=== PATIENT | female | born 1980 | race Hispanic/Latino ===

== ENCOUNTER 2020-01-03 22:03 | Emergency (ER) | payer BC ==
[~2020-01-03] VITALS: Ht 167.6 cm; Wt 99.8 kg
[2020-01-03] MEDS ORDERED: SODIUM CHLORIDE 0.9% 1000ML 1,000 ML IV ONE (22:15)
[2020-01-03] MEDS ORDERED: KETOROLAC TROMETHAMINE 30 MG/ML VIAL IV STA (22:15)
[2020-01-03] MEDS ORDERED: CEFTRIAXONE SOD 1 GM/NS 50 ML 50 ML IV ONE (22:15)
[2020-01-03] MEDS ORDERED: ACETAMINOPHEN 325 MG TAB PO ONE (22:15)
[2020-01-03] MEDS ORDERED: ONDANSETRON HCL INJ 2MG/ML 2ML 2 MG/ML VIAL IV STA (22:15)
[2020-01-03 22:28] LABS: BASOPHILS % 0.3 % (0.0-1.0); EOSINOPHILS % 0.1 % (0.0-6.0); HEMATOCRIT 40.9 % (34.2-44.1); HEMOGLOBIN 13.4 g/dL (12.0-16.0); LYMPHOCYTES # (AUTO) 1.7 (1.0-3.2); MEAN CORPUSCULAR HGB CONC 32.8 g/dL (31-35); MEAN CORPUSCULAR VOLUME 82.5 fL (81-99); MONOCYTES # (AUTO) 0.7 (0.2-0.8); MONOCYTES % 5.1 % (4.4-11.3); NEUTROPHILS # (AUTO) 11.4 (2.1-6.9); NEUTROPHILS % 81.9 % (38.7-80.0); PLATELET COUNT 246 x10e3/uL (140-360); RED BLOOD COUNT 4.96 x10e6/uL (3.6-5.1); RED CELL DISTRIBUTION WIDTH 13.2 % (11.7-14.4)
[2020-01-03 22:37] LABS: CLARITY,URINE CLOUDY (CLEAR); COLOR,URINE YELLOW (YELLOW); KETONES,URINE 3+ (NEGATIVE); LEUKOCYTE ESTERASE ,URINE TRACE (NEGATIVE); NITRITE,URINE NEGATIVE (NEGATIVE); PROTEIN,URINE DIPSTICK 2+ (NEGATIVE); URINE UROBILINOGEN 0.2 mg/dL (0.2 - 1)
[2020-01-03 22:38] LABS: BILIRUBIN,URINE NEGATIVE (NEGATIVE)
[2020-01-03 22:42] LABS: BACTERIA,URINE FEW /HPF; EPITHELIAL CELLS,URINE FEW /LPF; RBC,URINE >50 /HPF (0-5)
[2020-01-03 22:47] LABS: ALANINE AMINOTRANSFERASE 52 IU/L (0-55); ALBUMIN 4.5 g/dL (3.5-5.0); ALBUMIN/GLOBULIN RATIO 1.3 (0.8-2.0); ALKALINE PHOSPHATASE 91 IU/L (40-150); ANION GAP 15.8 mmol/L (8-16); BLOOD UREA NITROGEN 7 mg/dL (7-26); BUN/CREATININE RATIO 10 (6-25); CALCIUM 9.2 mg/dL (8.4-10.2); CARBON DIOXIDE 24 mmol/L (22-29); CHLORIDE 101 mmol/L (98-107); CREATININE, SERUM 0.71 mg/dL (0.57-1.11); EST GLOMERULAR FILTRATION RATE > 60 ML/MIN (60-); GLUCOSE 289 mg/dL (74-118); POTASSIUM 3.8 mmol/L (3.5-5.1); SODIUM 137 mmol/L (136-145)
--- NOTE | 2020-01-03 23:32 | Emergency Department Note ---
History of Present Illnes History of Present Illness Chief Complaint: Genitourinary History of Present Illness This is a 39 year old female states she went to an urgent care today. and was told she had a bladder infection. Given an IM rocephin shot and given oral antibiotics. C/o right flank pain and nausea and vomiting with weakness .pt febrile on arrival Historian: Patient Arrival Mode: Car Onset (how long ago): day(s) (1) Location: right flank Quality: pain, nausea, dysuria Radiation: Reports back Severity: moderate Onset quality: sudden Duration (how long): day(s) (1) Timing of current episode: constant Progression: unchanged Chronicity: new Context: Reports recent illness (uti); Denies recent surgery, Denies trauma/injury Relieving factors: none Exacerbating factors: none Associated symptoms: Reports nausea/vomiting Past Medical/Family History Physician Review I have reviewed the patient's past medical and family history. Any updates have been documented here. Past Medical History Recent Fever: No Clinical Suspicion of Infectio: No New/Unexplained Change in Ment: No Other Medical History: gestational dm Past Surgical History: Cholecysctectomy, Tubal Ligation, Social History Smoking Cessation: Never Smoker Alcohol Use: None Any Illegal Drug Use: No Family History Family history of heart diseas: No Review of Systems Review of Systems Constitutional: Reports chills EENTM: Reports no symptoms Cardiovascular: Reports no symptoms Respiratory: Reports no symptoms Gastrointestinal: Reports no symptoms Genitourinary: Reports as per HPI Musculoskeletal: Reports no symptoms Integumentary: Reports no symptoms Neurological: Reports no symptoms Psychological: Reports no symptoms Endocrine: Reports no symptoms Hematological/Lymphatic: Reports no symptoms Physical Exam Related Data Allergies: Coded Allergies: No Known Allergies (Unverified , 01/03/20) Triage Vital Signs Vital Signs Date Time Temp Pulse Resp B/P (MAP) Pulse Ox O2 Delivery O2 Flow Rate FiO2 01/03/20 22:13 100.4 110 21 150/90 96 Room Air Vital signs reviewed: Yes Physical Exam CONSTITUTIONAL Constitutional: Present well-developed, Present well-nourished, Present distressed (mild) HENT HENT: Present normocephalic, Present atraumatic, Present oropharynx carlos manuel r/moist, Present nose normal HENT L/R: Present left ext ear normal, Present right ext ear normal EYES Eyes: Reports PERRL, Reports conjunctivae normal NECK Neck: Present ROM normal PULMONARY Pulmonary: Present effort normal, Present breath sounds normal CARDIOVASCULAR Cardiovascular: Present regular rhythm, Present heart sounds normal, Present capillary refill normal, Present tachycardia GASTROINTESTINAL Abdominal: Present soft, Present bowel sounds normal, Present tender (suprapubic), Present right CVA tenderness (moderate) GENITOURINARY Genitourinary: Present exam deferred SKIN Skin: Present warm, Present dry MUSCULOSKELETAL Musculoskeletal: Present ROM normal NEUROLOGICAL Neurological: Present alert, Present oriented x 3, Present no gross motor or sensory deficits PSYCHOLOGICAL Psychological: Present mood/affect normal, Present judgement normal Results Laboratory Result Diagram: 01/03/200 01/03/20 2220 Laboratory Laboratory Tests Test 01/03/20 22:20 White Blood Count 13.95 x10e3/uL (4.8-10.8) Red Blood Count 4.96 x10e6/uL (3.6-5.1) Hemoglobin 13.4 g/dL (12.0-16.0) Hematocrit 40.9 % (34.2-44.1) Mean Corpuscular Volume 82.5 fL (81-99) Mean Corpuscular Hemoglobin 27.0 pg (28-32) Mean Corpuscular Hemoglobin Concent 32.8 g/dL (31-35) Red Cell Distribution Width 13.2 % (11.7-14.4) Platelet Count 246 x10e3/uL (140-360) Neutrophils (%) (Auto) 81.9 % (38.7-80.0) Lymphocytes (%) (Auto) 12.0 % (18.0-39.1) Monocytes (%) (Auto) 5.1 % (4.4-11.3) Eosinophils (%) (Auto) 0.1 % (0.0-6.0) Basophils (%) (Auto) 0.3 % (0.0-1.0) Neutrophils # (Auto) 11.4 (2.1-6.9) Lymphocytes # (Auto) 1.7 (1.0-3.2) Monocytes # (Auto) 0.7 (0.2-0.8) Eosinophils # (Auto) 0.0 (0.0-0.4) Basophils # (Auto) 0.0 (0.0-0.1) Absolute Immature Granulocyte (auto 0.08 x10e3/uL (0-0.1) Urine Color Yellow (YELLOW) Urine Clarity Cloudy (CLEAR) Urine pH 6 (5 - 7) Urine Specific Ripley 1.020 (1.010-1.025) Urine Protein 2+ (NEGATIVE) Urine Glucose (UA) 2+ (NEGATIVE) Urine Ketones 3+ (NEGATIVE) Urine Blood Large (NEGATIVE) Urine Nitrite Negative (NEGATIVE) Urine Bilirubin Negative (NEGATIVE) Urine Urobilinogen 0.2 mg/dL (0.2 - 1) Urine Leukocyte Esterase Trace (NEGATIVE) Urine RBC >50 /HPF (0-5) Urine WBC 11-20 /HPF (0-5) Urine Epithelial Cells Few /LPF (NONE) Urine Bacteria Few /HPF (NONE) Sodium Level 137 mmol/L (136-145) Potassium Level 3.8 mmol/L (3.5-5.1) Chloride Level 101 mmol/L (98-107) Carbon Dioxide Level 24 mmol/L (22-29) Anion Gap 15.8 mmol/L (8-16) Blood Urea Nitrogen 7 mg/dL (7-26) Creatinine 0.71 mg/dL (0.57-1.11) Estimat Glomerular Filtration Rate > 60 ML/MIN (60-) BUN/Creatinine Ratio 10 (6-25) Glucose Level 289 mg/dL (74-118) Lactic Acid Level 1.5 mmol/L (0.5-2.0) Calcium Level 9.2 mg/dL (8.4-10.2) Total Bilirubin 0.8 mg/dL (0.2-1.2) Aspartate Amino Transf (AST/SGOT) 25 IU/L (5-34) Alanine Aminotransferase (ALT/SGPT) 52 IU/L (0-55) Alkaline Phosphatase 91 IU/L (40-150) Total Protein 7.9 g/dL (6.5-8.1) Albumin 4.5 g/dL (3.5-5.0) Globulin 3.4 g/dL (2.3-3.5) Albumin/Globulin Ratio 1.3 (0.8-2.0) Lab results reviewed: Yes Imaging Imaging results reviewed: Yes Impressions Procedure: [id number] CT/CT ABDOMEN/PELVIS WO Exam Date: Exam Time: REPORT STATUS: Signed EXAM: CT Abdomen and Pelvis WITHOUT contrast INDICATION: ^RIGHT FLANK PAIN, EVAL FOR KIDNEY STONE, PYELONEPHRITIS ^Y COMPARISON: None. TECHNIQUE: Abdomen and pelvis were scanned utilizing a multidetector helical scanner from the lung base to the pubic symphysis without administration of IV contrast. Absence of intravenous contrast decreases sensitivity for detection of focal lesions and vascular pathology. Coronal and sagittal reformations were obtained. Routine protocol was performed. IV CONTRAST: None ORAL CONTRAST: None COMPLICATIONS: None RADIATION DOSE: Total DLP: 806.96 mGy*cm Estimated effective dose: (DLP x 0.015 x size factor) mSv CTDIvol has been reviewed. It is below the limits set by the Radiation Protocol Committee (RPC). Dose modulation, iterative reconstruction, and/or weight based adjustment of the mA/kV was utilized to reduce the radiation dose to as low as reasonably achievable. FINDINGS: Noncontrast technique limits evaluation of the solid organs. LINES and TUBES: None. LOWER THORAX: Unremarkable HEPATOBILIARY: No significant abnormality. GALLBLADDER: There are cholecystectomy clips. SPLEEN: No splenomegaly. PANCREAS: No focal masses or ductal dilatation. ADRENALS: No adrenal nodules KIDNEYS/URETERS: No hydronephrosis. No urinary tract calculi. Mild right periureteral fat stranding involves entire length of the ureter. Nonspecific symmetric minimal /trace strandy fluid about both kidneys. GI TRACT: No abnormal distention, wall thickening, or evidence of bowel obstruction. Appendix is normal. PELVIC ORGANS/BLADDER: Unremarkable. LYMPH NODES: No lymphadenopathy. VESSELS: Unremarkable. PERITONEUM / RETROPERITONEUM: No free air or fluid. BONES: Unremarkable. SOFT TISSUES: Unremarkable. IMPRESSION: 1. Mild right periureteral fat stranding could represent an ascending urinary tract infection versus recently passed stone. 2. No urinary tract calculi. No hydronephrosis. Signed by: Christian Puckett MD on 01/03/2020 11:31 PM Dictated By: CHRISTIAN PUCKETT MD 30 Transcribed By: BETO on 01/03/202330 COPY TO: ADITI WORTHINGTON MD~ Assessment & Plan Medical Decision Making MDM pt with right flank pain, fever, n/v diagnosed with uti at an urgent care today and received 1 gram rocephin im at the urgent care cbc.cmp, lactic acid, blood culture, ua, urine culture, ct abd/pelvis ordered to eval for sepsis, uti, hematuria, kidney stone, pyelonephritis, electrolyte abnormality rocephin 1 gram iv ordered ns 1 liter iv bolus ordered toradol 30 mg iv ordered zofran 4 mg iv ordered Reassessment Reassessment time: 00:02 Reassessment pt states she feels much better, states she is ready to go home. Assessment & Plan Final Impression: (1) UTI (urinary tract infection) Depart Disposition: HOME, SELF-CARE Last Vital Signs Date Time Temp Pulse Resp B/P (MAP) Pulse Ox O2 Delivery O2 Flow Rate FiO2 01/03/20 22:13 100.4 110 21 150/90 96 Room Air Medications in the ED Sodium Chloride 1,000 ml @ 999 mls/hr Q1H1M ONCE IV ; Start 01/03/20 at 22:15; Stop 01/03/20 at 23:15; Status DC Ketorolac Tromethamine 30 mg ONCE STAT IV ; Start 01/03/20 at 22:15; Stop 01/03/20 at 22:26; Status DC Ceftriaxone Sodium 50 ml @ 100 mls/hr ONCE ONCE IV ; Start 01/03/20 at 22:15; Stop 01/03/20 at 22:44; Status DC Ondansetron HCl 4 mg NOW STAT IV ; Start 01/03/20 at 22:15; Stop 01/03/20 at 22:26; Status DC Acetaminophen 650 mg ONCE ONCE PO ; Start 01/03/20 at 22:15; Stop 01/03/20 at 22:26; Status DC ADITI WORTHINGTON MD Jan 03, 2020 23:32
[2020-01-04 00:10] VITALS: BP 135/69
--- OUTSIDE RECORDS SUMMARY | 2020-01-05 10:14 | XMS REPORT | Continuity of Care Document ---
Author Author [facility] Organization [facility] Address [address] [place] [address] Phone Unavailable Care Team Providers Care Apartment Community Assistant Manager Name Role Phone Unavailable Unavailable Problems This patient has no known problems. Allergies, Adverse Reactions, Alerts This patient has no known allergies or adverse reactions. Medications This patient has no known medications. Procedures This patient has no known procedures. Encounters Start Date/Time End Date/Time Encounter Type Admission Type [facility] Care Department Encounter ID Source 2018-09-15 13:19:00 2018-09-15 13:19:00 Emergency E [id number] Results This patient has no known results.
== END 2020-01-04 00:30 | disposition home or self-care (01) ==
LOC: ER 22:20
DX: N39.0 Urinary tract infection, site not specified (principal); R73.9 Hyperglycemia, unspecified; R50.9 Fever, unspecified; M54.5 Low back pain; R11.2 Nausea with vomiting, unspecified; R53.1 Weakness
CPT/HCPCS: 36415; 74176; 80053; 81001; 83605; 85025; 87040; 87086; 87186; 96374; 96375; 99284; J0696; J1885; J2405; J7030

== ENCOUNTER 2020-04-21 20:21 | Emergency (ER) | payer BC ==
[~2020-04-21] VITALS: Ht 167.6 cm; Wt 99.8 kg
[2020-04-21 21:10] LABS: CLARITY,URINE HAZY (CLEAR); COLOR,URINE YELLOW (YELLOW); KETONES,URINE 2+ (NEGATIVE); LEUKOCYTE ESTERASE ,URINE NEGATIVE (NEGATIVE); NITRITE,URINE NEGATIVE (NEGATIVE); PROTEIN,URINE DIPSTICK NEGATIVE (NEGATIVE)
[2020-04-21 21:11] LABS: BACTERIA,URINE FEW /HPF; EPITHELIAL CELLS,URINE FEW /LPF; RBC,URINE 0-5 /HPF (0-5); URINE UROBILINOGEN 0.2 mg/dL (0.2 - 1); WBC,URINE (MAN) 0-5 /HPF (0-5)
[2020-04-21 21:14] LABS: PREGNANCY TEST, URINE NEGATIVE (NEGATIVE)
== END 2020-04-21 21:30 | disposition home or self-care (01) ==
LOC: ER 20:36
DX: R73.9 Hyperglycemia, unspecified (principal); N39.0 Urinary tract infection, site not specified
CPT/HCPCS: 36415; 36600; 81001; 81025; 82805; 82948; 99283

== ENCOUNTER 2024-07-08 21:17 | Emergency (ER) | payer SELFPAY ==
[~2024-07-08] VITALS: Ht 167.6 cm; Wt 100.7 kg
[~2024-07-08 21:17] MED LIST: DOXYCYCLINE HY100 MG PO; NAPROXEN250 MG PO
[2024-07-08 21:20] VITALS: PULSE 89; RESP 16; TEMP 98.6; O2SAT 100
[2024-07-08] MEDS ORDERED: TETANUS/DIPHTHERIA TOX ADULT 0.5 ML SYR ONE (21:31)
[2024-07-08] MEDS: TETANUS/DIPHTHERIA TOX ADULT 0.5 ML SYR IM ONE (21:39)
== END 2024-07-08 21:41 | disposition home or self-care (01) ==
LOC: ER 21:33
DX: S61.210A Laceration without foreign body of right index finger without damage to nail, initial encounter (principal); W26.8XXA Contact with other sharp object(s), not elsewhere classified, initial encounter; Y92.89 Other specified places as the place of occurrence of the external cause
CPT/HCPCS: 90471; 90714; 99283

== ENCOUNTER 2024-09-29 19:28 | Emergency (ER) | payer BC ==
[~2024-09-29] VITALS: Ht 167.6 cm; Wt 100.7 kg
[2024-09-29 20:03] LABS: BASOPHILS % 0.4 % (0.0-1.0); EOSINOPHILS # (AUTO) 0.1 (0.0-0.4); EOSINOPHILS % 1.1 % (0.0-6.0); HEMOGLOBIN 12.2 g/dL (12.0-16.0); LYMPHOCYTES # (AUTO) 2.2 (1.0-3.2); LYMPHOCYTES % 22.5 % (18.0-39.1); MEAN CORPUSCULAR VOLUME 81.9 fL (81-99); MONOCYTES # (AUTO) 0.5 (0.2-0.8); MONOCYTES % 4.8 % (4.4-11.3); NEUTROPHILS # (AUTO) 6.8 (2.1-6.9); NEUTROPHILS % 70.9 % (38.7-80.0); PLATELET COUNT 284 x10e3/uL (140-360); RED BLOOD COUNT 4.52 x10e6/uL (3.6-5.1); RED CELL DISTRIBUTION WIDTH 13.7 % (11.7-14.4); WHITE BLOOD COUNT 9.61 x10e3/uL (4.8-10.8)
[2024-09-29 20:07] LABS: BILIRUBIN,URINE NEGATIVE (NEGATIVE); CLARITY,URINE CLOUDY (CLEAR); COLOR,URINE YELLOW (YELLOW); GLUCOSE, URINE 500 (NEGATIVE); KETONES,URINE 2+ (NEGATIVE); LEUKOCYTE ESTERASE ,URINE TRACE (NEGATIVE); NITRITE,URINE NEGATIVE (NEGATIVE); PH,URINE 6 (5 - 7); PROTEIN,URINE DIPSTICK NEGATIVE (NEGATIVE); URINE UROBILINOGEN 0.2 mg/dL (0.2 - 1)
[2024-09-29 20:08] LABS: PREGNANCY TEST, URINE NEGATIVE (NEGATIVE)
[2024-09-29 20:16] LABS: WBC,URINE (MAN) >50 /HPF (0-5)
[2024-09-29 20:17] LABS: BACTERIA,URINE MODERATE /HPF; EPITHELIAL CELLS,URINE FEW /LPF
[2024-09-29] MEDS: ONDANSETRON HCL INJ 2MG/ML 2ML 2 MG/ML VIAL IV STA (20:21)
[2024-09-29] MEDS: KETOROLAC TROMETHAMINE 30 MG/ML VIAL IV STA (20:23)
[2024-09-29] MEDS: SODIUM CHLORIDE 0.9% 1000ML 1,000 ML IV STA (20:24)
[2024-09-29 20:25] LABS: ALBUMIN 3.7 g/dL (3.5-5.0); ALBUMIN/GLOBULIN RATIO 0.8 (0.8-2.0); ANION GAP 17.6 mmol/L (8-16); BILIRUBIN,TOTAL 0.3 mg/dL (0.2-1.2); CALCIUM 9.3 mg/dL (8.4-10.2); CREATININE, SERUM 0.78 mg/dL (0.57-1.11); POTASSIUM 3.6 mmol/L (3.5-5.1); TOTAL PROTEIN 8.1 g/dL (6.5-8.1)
[2024-09-29 21:22] VITALS: TEMP 98.6
[2024-09-29] MEDS ORDERED: KETOROLAC TROME10 MG PO (22:03)
[2024-09-29] MEDS ORDERED: ONDANSETRON ODT4 MG PO (22:03)
[2024-09-29] MEDS ORDERED: CIPRO500 MG PO (22:03)
[2024-09-29] MEDS ORDERED: ULTRAM 50MG50 MG PO (22:03)
[2024-09-29 22:05] VITALS: PULSE 79; RESP 17
[2024-09-29 22:14] VITALS: BP 125/60; O2SAT 100
== END 2024-09-29 22:11 | disposition home or self-care (01) ==
LOC: ER 19:32
DX: R10.30 Lower abdominal pain, unspecified (principal); N39.0 Urinary tract infection, site not specified; M54.50 Low back pain, unspecified
CPT/HCPCS: 36415; 74176; 80053; 81001; 81025; 83690; 85025; 99284; J1885; J2405; J7030

== ENCOUNTER 2024-12-07 08:24 | Emergency (ER) | payer BC ==
[~2024-12-07] VITALS: Ht 167.6 cm; Wt 100.7 kg
[~2024-12-07 08:24] MED LIST changes: +CIPRO500 MG PO; +KETOROLAC TROME10 MG PO; +ONDANSETRON ODT4 MG PO; +ULTRAM 50MG50 MG PO
[2024-12-07] MEDS: KETOROLAC TROMETHAMINE 60 MG/2 ML VIAL IM STA (08:42)
[2024-12-07] MEDS ORDERED: PREDNISONE20 MG PO (09:44)
[2024-12-07 10:21] VITALS: PULSE 80; RESP 16; TEMP 97.9
[2024-12-07 10:22] VITALS: BP 123/61; PULSE 10; RESP 16; TEMP 97.9; O2SAT 100
== END 2024-12-07 10:26 | disposition home or self-care (01) ==
LOC: ER 08:32
DX: M79.641 Pain in right hand (principal); G56.01 Carpal tunnel syndrome, right upper limb; M79.89 Other specified soft tissue disorders
CPT/HCPCS: 29125; 73110; 73120; 99284; J1885